=== PATIENT | female | born 1955 ===

== ENCOUNTER 2021-01-24 09:46 | Outpatient (CLI) | payer OTHER | END 2021-01-24 09:49 | disposition home or self-care (01) | LOC: SONOGRAMA 09:46 | PROVIDERS: ATTEND Pathology Anatomic Pathology & Clinical Pathology | DX: D34 Benign neoplasm of thyroid gland (principal); E04.1 Nontoxic single thyroid nodule; E07.89 Other specified disorders of thyroid ==